=== PATIENT | male | born 1965 | race Caucasian/White ===

== ENCOUNTER → 2017-07-08 | Outpatient (CLI) | payer OTHER ==
[2017-07-08 18:37] LABS: BASOPHILS # (AUTO) 0.1 10^3/uL (0.0-0.1); BASOPHILS % (AUTO) 1 % (0-10); EOSINOPHILS # (AUTO) 0.9 10^3/uL (0.0-0.3); EOSINOPHILS % (AUTO) 9 % (0-10); HEMATOCRIT 41 % (40-54); HEMOGLOBIN 14.8 G/DL (13.3-17.7); LYMPHOCYTES # (AUTO) 3.4 X 10^3 (1.0-4.0); LYMPHOCYTES % (AUTO) 34 % (12-44); MEAN CORPUSCULAR HEMOGLOBIN 33 PG (25-34); MEAN CORPUSCULAR HGB CONC 37 G/DL (32-36); MEAN CORPUSCULAR VOLUME 89 FL (80-99); MEAN PLATELET VOLUME 9.4 FL (7.4-10.4); MONOCYTES # (AUTO) 0.8 X 10^3 (0.0-1.0); MONOCYTES % (AUTO) 8 % (0-12); NEUTROPHILS # (AUTO) 4.9 X 10^3 (1.8-7.8); NEUTROPHILS % (AUTO) 49 % (42-75); PLATELET COUNT 349 10^3/uL (130-400); RED BLOOD COUNT 4.56 10^6/uL (4.35-5.85); RED CELL DISTRIBUTION WIDTH 13.3 % (10.0-14.5)
[2017-07-08 18:56] LABS: ALANINE AMINOTRANSFERASE 23 U/L (0-55); ALBUMIN 4.3 GM/DL (3.2-4.5); ALKALINE PHOSPHATASE 74 U/L (40-136); BILIRUBIN,TOTAL 0.5 MG/DL (0.1-1.0); BUN/CREATININE RATIO 17; CALCIUM 9.5 MG/DL (8.5-10.1); CARBON DIOXIDE 22 MMOL/L (21-32); CHLORIDE 108 MMOL/L (98-107); CREATININE SERUM 0.81 MG/DL (0.60-1.30); GFR ESTIMATED > 60; GLUCOSE 85 MG/DL (70-105); POTASSIUM 3.9 MMOL/L (3.6-5.0); SODIUM 140 MMOL/L (135-145); TOTAL PROTEIN 7.4 GM/DL (6.4-8.2)
[2017-07-08 19:03] LABS: CREATINE KINASE MB 2.2 NG/ML (<6.6); MYOGLOBIN SERUM 42.4 NG/ML (10.0-92.0)
== END ==
LOC: LAB 18:00
PROVIDERS: ATTEND Nurse Practitioner Family
DX: R06.02 Shortness of breath (principal); R07.9 Chest pain, unspecified
CPT/HCPCS: 36415; 80053; 82553; 83874; 84484; 85025; 86141; 86738

== ENCOUNTER → 2018-07-19 | Outpatient (CLI) | payer OTHER ==
[2018-07-19 15:07] LABS: ABG BASE EXCESS 4.5 MMOL/L (-2.5-2.5); ABG OXYGEN SATURATION 97 % (94-100); ABG PCO2 42 MMHG (35-45); ABG PH 7.44 (7.37-7.43); ABG PO2 71 MMHG (79-93)
[2018-07-19 15:08] LABS: ALLENS TEST YES-POS
[2018-07-19 15:09] LABS: INSPIRED O2 0; VENTILATOR NO
[2018-07-19 15:10] LABS: PATIENT TEMP 97
== END ==
LOC: RT 14:14
PROVIDERS: ATTEND Nurse Practitioner Family
DX: J18.9 Pneumonia, unspecified organism (principal); R06.89 Other abnormalities of breathing; R05 Cough; R06.00 Dyspnea, unspecified; J30.9 Allergic rhinitis, unspecified; Z87.891 Personal history of nicotine dependence
CPT/HCPCS: 36600; 82805

== ENCOUNTER → 2018-08-19 | Outpatient (CLI) | payer OTHER ==
--- NOTE | 2018-08-19 15:56 | Diagnostic Imaging Report ---
INDICATION: History of tobacco use.. TECHNIQUE: Two view chest 3:44 PM CORRELATION STUDY: None FINDINGS: The heart size, mediastinal configuration and pulmonary vasculature are within normal limits. The lungs are clear with no consolidating infiltrate. There is no significant pleural effusion or pneumothorax. Visualized osseous structures are unremarkable. IMPRESSION: 1. No radiographic evidence for acute abnormality of the chest. Dictated by: Dictated on workstation # [id number]
== END ==
LOC: RAD 15:28
PROVIDERS: ATTEND Nurse Practitioner Family
DX: J18.9 Pneumonia, unspecified organism (principal); J30.9 Allergic rhinitis, unspecified; Z87.891 Personal history of nicotine dependence
CPT/HCPCS: 71046

== ENCOUNTER → 2018-10-03 | Outpatient (CLI) | payer OTHER ==
[~2018-10-03] MED LIST: RT-ALBUTEROL SULF 2.5 MG/3 ML PRE-MIX VIAL INH ONE
== END ==
LOC: RT 11:17
PROVIDERS: ATTEND Nurse Practitioner Family
DX: J30.9 Allergic rhinitis, unspecified (principal); J18.9 Pneumonia, unspecified organism; Z87.891 Personal history of nicotine dependence
CPT/HCPCS: 94060; 94726; 94729

== ENCOUNTER 2020-06-13 09:28 | Outpatient (CLI) | payer OTHER ==
[~2020-06-13] VITALS: Ht 180.3 cm; Wt 91.7 kg
[2020-06-13] MEDS ORDERED: HYDR12.56 PO (14:34)
[2020-06-13] MEDS ORDERED: FLUT1BLS3 IH (14:34)
[2020-06-13] MEDS ORDERED: CETI10TA17 PO (14:34)
[2020-06-13] MEDS ORDERED: ASPI-999 PO (14:34)
[2020-06-13] MEDS ORDERED: PANT40TA52 PO (14:34)
== END 2020-06-13 14:41 | disposition home or self-care (01) ==
LOC: PREOP 09:28
PROVIDERS: ATTEND Internal Medicine
DX: Z01.818 Encounter for other preprocedural examination (principal)

== ENCOUNTER 2020-06-21 08:16 | Day surgery (SDC) | payer OTHER ==
--- NOTE | 2020-06-14 07:13 | HISTORY AND PHYSICAL ---
DATE OF SERVICE: 06/21/2020 COLONOSCOPY HISTORY AND PHYSICAL HISTORY OF PRESENT ILLNESS: The patient is a 54-year-old white male referred by SB Ordaz, for screening colonoscopy. He has had no past history of colonoscopy. He is deemed to be of above average risk due to family history of colon cancer. His father was diagnosed with colon cancer at the age of 71. He is not aware of any family history for colon cancer and has no personal history of inflammatory bowel disease. He reports that he has been feeling well usual state of health with no abdominal pain, change in bowel habit, melena or bright red blood per rectum. 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 SOCIAL HISTORY: He has a 30+ pack year smoking history, but quit 15 to 18 years ago. 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 FAMILY HISTORY: Father of colon cancer at age of 71. Mother of complications of diabetes apparently, suffered a pulmonary embolism after lower leg amputation in her 60s. Two brothers and 2 sisters living with no reported health problems. PAST SURGICAL HISTORY: Reports no past surgeries. REVIEW OF SYSTEMS: CONSTITUTIONAL: The patient denies change in weight, night sweats, chills or fever. GASTROINTESTINAL: As noted in the HPI. CARDIOVASCULAR: The patient denies chest pain, orthopnea, PND, pedal edema, shortness of breath or heart racing sensation. PULMONARY: The patient denies cough, dyspnea on exertion or wheezing as long as he takes his inhaler. MEDICATIONS: Pantoprazole 40 mg daily, hydrochlorothiazide one tablet daily, 81 mg aspirin daily and Trelegy 2 puffs daily. PHYSICAL EXAMINATION: GENERAL: Reveals a pleasant white male, appears to be in no acute distress. HEENT: Unremarkable. VITAL SIGNS: Weight 202 pounds, blood pressure 138/90. CHEST: Clear to auscultation. CARDIOVASCULAR: Reveals a regular rate and rhythm without murmur, S3 or S4. ABDOMEN: Soft, supple without mass, organomegaly or tenderness. EXTREMITIES: Reveal no cyanosis, clubbing or edema. ASSESSMENT AND PLAN: The patient is set up for screening colonoscopy, deemed to be of higher than average risk as his father was diagnosed with colon cancer in his early 70s. Prep instructions with the Suprep kit were given and questions were answered. I thank you for the referral of this pleasant gentleman. Job ID: [id number] DocumentID: [id number] Dictated Date: 06/13/2020 05:59:52 Tin Worker Date: 06/13/2020 08:53:56 Dictated By: MARCY GOMEZ MD
[~2020-06-21] VITALS: Ht 180.3 cm; Wt 91.7 kg
[~2020-06-21 08:16] MED LIST changes: +ASPI-999 PO; +CETI10TA17 PO; +FLUT1BLS3 IH; +HYDR12.56 PO; +LACTATED RINGERS 1,000 ML IV ONE; +PANT40TA52 PO; -RT-ALBUTEROL SULF 2.5 MG/3 ML PRE-MIX VIAL INH ONE
[2020-06-21] MEDS ORDERED: LACTATED RINGERS 1,000 ML IV STA (08:28)
[2020-06-21] MEDS ORDERED: LIDOCAINE JELLY 2% 6 ML SYRINGE MM PRN (08:30)
--- NOTE | 2020-06-21 08:34 | Pre-Op Note & Conscious Sedat ---
Pre-Operative Progress Note H&P Reviewed The H&P was reviewed, patient examined and no changes noted. Date H&P Reviewed: June 21, 2020 Time H&P Reviewed: 08:00 Conscious Sedation Pre-Proced ASA Score 2 For ASA 3 and 4: Consider anesthesia and medical clearance. Also, for patients with a history of failed moderate sedation consider anesthesia. Airway Lungs Heart ASA score ASA 1: a normal healthy patient ASA 2: a patient with a mild systemic disease (mid diabetes, controlled hypertension, obesity ASA 3: a patient with a severe systemic disease that limits activity (angina, COPD, prior Myocardial infarction) ASA 4: a patient with an incapacitating disease that is a constant threat to life (CHF, renal failure) ASA 5: a moribund patient not expected to survive 24 hrs. (ruptured aneurysm) ASA 6: a declared brain- patient whose organs are being harvested. For emergent operations, add the letter E after the classification Mallampati Classification Grade 2 Sedation Plan Analgesia, Amnesia, Plan communicated to team members, Discussed options with patient/fam, Discussed risks with patient/fam The patient is an appropriate candidate to undergo the planned procedure, sedation, and anesthesia. The patient immediately re-assessed prior to indication. MARCY GOMEZ MD June 21, 2020 08:34
[2020-06-21 08:40] VITALS: BP 141/58
[2020-06-21] MEDS ORDERED: LIDOCAINE JELLY 2% 6 ML SYRINGE ONE (08:40)
[2020-06-21] MEDS ORDERED: PROPOFOL INJECTION 50 ML IV ONE (09:10)
[2020-06-21] MEDS ORDERED: MIDAZOLAM 2 MG/2 ML (VERSED) VIAL ONE (09:10)
[2020-06-21] MEDS ORDERED: ONDANSETRON 4 MG/2 ML (SDV) Z0FRAN ONE (09:21)
[2020-06-21 09:45] VITALS: BP 112/66
[2020-06-21 09:50] VITALS: BP 117/66
[2020-06-21 09:55] VITALS: BP 126/74
[2020-06-21 10:00] VITALS: BP 126/74
[2020-06-21 10:26] VITALS: BP 125/72
--- NOTE | 2020-06-21 13:27 | Anesthesia-General Post-Op ---
MAC Patient Condition Mental Status/LOC: Same as Preop Cardiovascular: Satisfactory Nausea/Vomiting: Absent Respiratory: Satisfactory Pain: Controlled Complications: Absent Post Op Complications Complications None Follow Up Care/Instructions Patient Instructions None needed. Anesthesiology Discharge Order Discharge Order Patient is doing well, no complaints, stable vital signs, no apparent adverse anesthesia problems. No complications reported per nursing. ALBERTO NGUYEN CRNA June 21, 2020 13:27
--- NOTE | 2020-06-21 17:48 | OPERATIVE REPORT ---
DATE OF SERVICE: COLONOSCOPY SUMMARY INDICATION FOR THE PROCEDURE: Screening colonoscopy. DESCRIPTION OF PROCEDURE: The patient was placed in the left lateral decubitus position. Prior to doing colonoscopy, digital rectal evaluation was performed. Anal sphincter tone was normal. Reflexes intact. Prostate is mildly enlarged, anodular and nontender to digital inspection. No other abnormalities were noted on digital inspection of anal canal or distal rectal vault. The colonoscope was then inserted into the rectum and under direct visualization advanced to cecum. The cecum was identified by identification of ileocecal valve and cecal strap. Photographic documentation was obtained. Careful inspection was made as the colonoscope was withdrawn. The patient tolerated the procedure well. FINDINGS: There was no evidence for internal or external hemorrhoids. Present in the rectum was a small adenomatous appearing polyp measuring about 5 mm in size. It was photographed and biopsied and ablated with no subsequent blood loss. One other similar polyp was noted in the mid sigmoid colon. It was biopsied and ablated and submitted for histopathology. No other sigmoid colonic abnormalities were appreciated. The descending colon, splenic flexure, transverse colon, hepatic flexure, ascending colon, and cecum were unremarkable. ASSESSMENT: Two small sessile polyps were removed, one from the rectum, the other one from the mid sigmoid colon. Digital evaluation of the prostate was compatible with mild BPH. We will await histopathology report before advocating future surveillance colonoscopy. I thank you for the referral of this pleasant gentleman. Job ID: [id number] DocumentID: [id number] Dictated Date: 06/21/2020 11:21:35 Pet Caretaker Date: 06/21/2020 17:48:20 Dictated By: MARCY GOMEZ MD MTDD
== END 2020-06-21 10:30 | disposition home or self-care (01) ==
LOC: ENDO 08:16
PROVIDERS: ATTEND Internal Medicine
DX: Z12.11 Encounter for screening for malignant neoplasm of colon (principal); K63.5 Polyp of colon; K62.1 Rectal polyp; K21.9 Gastro-esophageal reflux disease without esophagitis; N40.0 Benign prostatic hyperplasia without lower urinary tract symptoms; I10 Essential (primary) hypertension; J44.9 Chronic obstructive pulmonary disease, unspecified; Z79.899 Other long term (current) drug therapy; Z87.891 Personal history of nicotine dependence; Z79.82 Long term (current) use of aspirin; Z80.0 Family history of malignant neoplasm of digestive organs
CPT/HCPCS: 88305

== ENCOUNTER → 2020-09-19 | Outpatient (CLI) | payer OTHER ==
[~2020-09-19] MED LIST changes: -LACTATED RINGERS 1,000 ML IV ONE
--- NOTE | 2020-09-19 17:57 | Diagnostic Imaging Report ---
EXAMINATION: Abdomen 1 view. HISTORY: Low back pain. COMPARISON: None available. FINDINGS: There is no calcification projecting over the kidneys or pelvis. No dilated bowel. No free air. IMPRESSION: No calcification projecting over the kidneys or pelvis. Dictated by: Dictated on workstation # [id number]
== END ==
LOC: RAD 17:15
PROVIDERS: ATTEND Nurse Practitioner Family
DX: Z76.0 Encounter for issue of repeat prescription (principal); M54.5 Low back pain; I10 Essential (primary) hypertension; K21.9 Gastro-esophageal reflux disease without esophagitis; J44.9 Chronic obstructive pulmonary disease, unspecified; E78.49 Other hyperlipidemia; N39.0 Urinary tract infection, site not specified
CPT/HCPCS: 74018

== ENCOUNTER → 2020-09-26 | Outpatient (CLI) | payer OTHER ==
[~2020-09-26] MED LIST changes: +RT-ALBUTEROL SULF 2.5 MG/3 ML PRE-MIX VIAL INH ONE
== END ==
LOC: RT 17:10
PROVIDERS: ATTEND Nurse Practitioner Family
DX: J44.9 Chronic obstructive pulmonary disease, unspecified (principal)
CPT/HCPCS: 94060; 94726; 94729